=== PATIENT | male | born 1955 | race Caucasian/White ===

== ENCOUNTER 2018-06-12 07:31 | Day surgery (SDC) | payer OTHER ==
[~2018-06-12] VITALS: Ht 185.4 cm; Wt 108.9 kg
[~2018-06-12 07:31] MED LIST: ATOR40TA PO; BASAGLAR K100 UNIT/1 SC; Humalog100 UNIT/3; Prinivil10 MG PO; SILD25T PO
== END 2018-06-12 22:39 | disposition home or self-care (01) ==
LOC: ORSCMMR 07:31 → ORD 08:30 → ORSCMMR 22:39
PROVIDERS: Internal Medicine Gastroenterology
PROC: 0DBM8ZX Excision of Descending Colon, Via Natural or Artificial Opening Endoscopic, Diagnostic (ICD-10-PCS; principal; 2018-06-12 08:30)
DX: Z12.11 Encounter for screening for malignant neoplasm of colon (principal); D12.4 Benign neoplasm of descending colon; K57.30 Diverticulosis of large intestine without perforation or abscess without bleeding; Z86.010 Personal history of colon polyps; E11.9 Type 2 diabetes mellitus without complications; I10 Essential (primary) hypertension; E78.00 Pure hypercholesterolemia, unspecified; Z87.891 Personal history of nicotine dependence; Z79.4 Long term (current) use of insulin; Z79.899 Other long term (current) drug therapy
CPT/HCPCS: 82947; 88305; J7120

== ENCOUNTER 2018-11-17 15:36 | Observation (INO) | payer MEDICARE ==
[~2018-11-17] VITALS: Ht 182.9 cm; Wt 108.6 kg
[2018-11-17 16:07] LABS: BASOPHILS ABSOLUTE AUTO 0.06 K/mm3 (0.00-0.23); BASOPHILS PERCENT AUTO 0 % (0-2); EOSINOPHILS ABSOLUTE AUTO 0.03 K/mm3 (0.00-0.68); EOSINOPHILS PERCENT AUTO 0 % (0-6); Hematocrit 44.2 % (37.0-53.0); Hemoglobin 14.4 g/dL (13.5-17.5); IMMATURE GRAN ABSOLUTE AUTO 0.06 K/mm3 (0.00-0.10); IMMATURE GRAN PERCENT AUTO 0 % (0-1); LYMPHOCYTES ABSOLUTE AUTO 2.17 K/mm3 (0.84-5.20); LYMPHOCYTES PERCENT AUTO 16 % (21-46); MONOCYTES PERCENT AUTO 9 % (4-13); Mean Corpuscular HGB 31.4 pg (26.0-34.0); Mean Corpuscular HGB Conc 32.6 g/dL (31.5-36.5); Mean Corpuscular Volume 97 fL (80-100); Mean Platelet Volume 9.6 fL (9.1-12.4); NEUTROPHILS ABSOLUTE AUTO 9.87 K/mm3 (1.96-9.15); NEUTROPHILS PERCENT AUTO 74 % (41-73); Platelet Count 339 K/mm3 (150-400); RDW Coefficient Variation 12.1 % (11.7-14.2); Red Blood Cell Count 4.58 M/mm3 (4.30-5.90); White Blood Cell Count 13.39 K/mm3 (4.00-11.30)
[2018-11-17 16:27] LABS: Alanine Aminotransfer (ALT/SGP 33 U/L (12-78); Albumin, Blood 3.8 g/dL (3.4-5.0); Alk Phos 98 U/L (50-136); Anion Gap 10 mmol/L (6-16); Aspartate Aminotrans (AST/SGOT 35 U/L (12-37); Bilirubin, Total 0.3 mg/dL (0.1-1.0); Blood Urea Nitrogen 14 mg/dL (8-24); Bun/Creatinine Ratio 15.4 (12.0-20.0); CO2, Blood 25 mmol/L (21-32); Calcium, Blood 8.2 mg/dL (8.5-10.1); Chloride, Blood 105 mmol/L (98-108); Creatinine, Blood 0.91 mg/dL (0.60-1.20); Glomerular Filtration Rate >60 (60-); Glucose, Blood 136 mg/dL (70-99); Potassium, Blood 3.9 mmol/L (3.5-5.5); Sodium, Blood 140 mmol/L (136-145); Total Protein, Blood 7.8 g/dL (6.4-8.2)
[2018-11-17 16:31] LABS: International Normalized Ratio 0.93; Prothrombin Time Results 9.8 Sec (9.7-11.5)
[2018-11-18 05:10] LABS: BASOPHILS ABSOLUTE AUTO 0.05 K/mm3 (0.00-0.23); BASOPHILS PERCENT AUTO 1 % (0-2); EOSINOPHILS ABSOLUTE AUTO 0.02 K/mm3 (0.00-0.68); EOSINOPHILS PERCENT AUTO 0 % (0-6); Hematocrit 42.3 % (37.0-53.0); Hemoglobin 14.2 g/dL (13.5-17.5); IMMATURE GRAN ABSOLUTE AUTO 0.02 K/mm3 (0.00-0.10); IMMATURE GRAN PERCENT AUTO 0 % (0-1); LYMPHOCYTES ABSOLUTE AUTO 1.94 K/mm3 (0.84-5.20); LYMPHOCYTES PERCENT AUTO 24 % (21-46); MONOCYTES ABSOLUTE AUTO 0.91 K/mm3 (0.16-1.47); MONOCYTES PERCENT AUTO 11 % (4-13); Mean Corpuscular HGB 31.3 pg (26.0-34.0); Mean Corpuscular HGB Conc 33.6 g/dL (31.5-36.5); Mean Platelet Volume 9.8 fL (9.1-12.4); NEUTROPHILS ABSOLUTE AUTO 5.32 K/mm3 (1.96-9.15); NEUTROPHILS PERCENT AUTO 65 % (41-73); Platelet Count 318 K/mm3 (150-400); RDW Coefficient Variation 12.3 % (11.7-14.2); RDW Standard Deviation 42.4 fL (35.1-46.3); Red Blood Cell Count 4.53 M/mm3 (4.30-5.90); White Blood Cell Count 8.26 K/mm3 (4.00-11.30)
[2018-11-18 05:37] LABS: Mean Corpuscular Volume 93 fL (80-100)
--- NOTE | 2018-11-18 05:48 | NUR ---
SHIFT SUMMARY PT SLEPT SOUNDLY SINCE 2099. FALLS ASLEEP QUICK BUT WAKES WHEN YOU SAY HIS NAME. AOX4. ANSWERS ALL QUESTIONS APPROPRIATELY, FOLLOWS DIRECTIONS, IS SLOW TO RESPOND BUT SPEECH IS CLEAR. DENIES SOB, N/V OR PAIN. CHEM BG @HS 110. PER DAM ATTENDANT MONITOR PT IS NSR W/HR 91. CIWA SCORE RANGING 0-2 FOR A MILD HEADACHE PT REPORTED LAST NIGHT @ ADMISSION, NO FURTHER REPORTS OF HEADACHES. CALL LIGHT IS IN REACH & I WILL CONT TO MONITOR UNTIL DAY SHIFT RN ASSUMES CARE.
[2018-11-18 05:50] LABS: Anion Gap 7 mmol/L (6-16); Blood Urea Nitrogen 10 mg/dL (8-24); Bun/Creatinine Ratio 11.9 (12.0-20.0); CHOL/HDL RATIO 2.9; CO2, Blood 28 mmol/L (21-32); Calcium, Blood 8.6 mg/dL (8.5-10.1); Chloride, Blood 106 mmol/L (98-108); Cholesterol 186 mg/dL (50-200); Creatinine, Blood 0.84 mg/dL (0.60-1.20); Glomerular Filtration Rate >60 (60-); Glucose, Blood 100 mg/dL (70-99); HDL Cholesterol 64 mg/dL (>39); LDL/HDL RATIO 1.5; Low Density Lipoprotein Chol 98 mg/dL (0-110); Sodium, Blood 141 mmol/L (136-145); Triglycerides 118 mg/dL (30-160); Very Low Density Lipoprot Chol 23 mg/dL (6-32)
[2018-11-18 08:25] LABS: U Amphetamine Screen Not Detected; U Barbituate Screen Not Detected; U Benzodiazapine Screen Not Detected; U Buprenorphine Screen Not Detected; U Cannabinoids Screen DETECTED; U Cocaine Screen Not Detected; U Methadone Screen Not Detected; U Methamphetamine Screen Not Detected; U Opiates Screen Not Detected; U Oxycodone Screen Not Detected; U Phencyclidine Screen Not Detected; U Propoxyphene Screen Not Detected
--- NOTE | 2018-11-18 09:19 | NUR ---
PATIENT WAS OFFERED A SHOWER BUT WANTS TO WAIT HE IS POSSIBLY BEING DISCHARGED TODAY AND IF HE IS GOING HOME HE WANYS TO GO HOME AND TAKE ONE.
[2018-11-18] MEDS ORDERED: ASPI81CH PO (14:41)
[2018-11-18] MEDS ORDERED: LEVE500 PO (14:42)
--- NOTE | 2018-11-18 14:56 | NUR ---
DISCHARGE SUMMARY PT EXREMELY EAGER TO BE DISCHARGED. NURSE EDUCATED PT ON MEDICATIONS, TO PICK THEM UP FROM PHARMACY AND TO FOLLOW UP REGARDING OUTPATIENT MRI AND EEG. PT STATES THAT HE ALREADY HAS MRI SCHEDULED FOR NEXT WEEK. PT PULLED OWN IV AND DISCONNECTED HIMSELF FROM HIS IV KEPPRA EARLIER IN SHIFT. PT AMBULATED OUT WITH STEADY GAIT AND RN ESCORT. PT TRIED TO REFUSE ESCORT OUT.
== END 2018-11-18 14:49 | disposition home or self-care (01) ==
LOC: ER 15:36 → MEDS 15:37 → ENPENDDIS 11-18 14:01 → MEDS 11-18 14:49
PROVIDERS: Emergency Medicine; ADMIT Family Medicine
DX: R56.9 Unspecified convulsions (principal); I10 Essential (primary) hypertension; E10.649 Type 1 diabetes mellitus with hypoglycemia without coma; G45.9 Transient cerebral ischemic attack, unspecified; D72.829 Elevated white blood cell count, unspecified; E66.9 Obesity, unspecified; F12.90 Cannabis use, unspecified, uncomplicated; Z91.14 Patient's other noncompliance with medication regimen; Z79.899 Other long term (current) drug therapy; Z87.891 Personal history of nicotine dependence; Z68.29 Body mass index [BMI] 29.0-29.9, adult
CPT/HCPCS: 36415; 70450; 80048; 80053; 80061; 82947; 84146; 84443; 85025; 85610; 93005; 93010; 93306; 93880; 96361; 96365; 96366; 96372; 99285-25; G0378; G0480; J1650; J1815; J1953; J7050

== ENCOUNTER 2022-09-07 08:33 | Day surgery (SDC) | payer MEDICARE ==
[~2022-09-07 08:33] MED LIST changes: +ASPI81CH PO; +LEVE500 PO
== END 2022-09-07 10:53 | disposition home or self-care (01) ==
DX: H25.12 Age-related nuclear cataract, left eye (principal); H21.81 Floppy iris syndrome; I10 Essential (primary) hypertension; Z87.891 Personal history of nicotine dependence; E11.9 Type 2 diabetes mellitus without complications; Z79.899 Other long term (current) drug therapy

== ENCOUNTER 2025-01-08 07:45 | Day surgery (SDC) | payer MEDICARE ==
[~2025-01-08] VITALS: Ht 185.4 cm; Wt 97.2 kg
[~2025-01-08 07:45] MED LIST changes: +Lactated Ringer's 1,000 ML IV SCH
[2025-01-08 08:12] VITALS: BP 129/82
--- NOTE | 2025-01-08 08:28 | NUR ---
Ambulatory in Day Surgery WITH [facility]. History, Chart, Medications and Allergies reviewed before start of procedure. Pre-Op teaching done. Pt verbalizes understanding. Patient States Post-Procedure ride home has been arranged WITH [employer] [facility]. GLASSES REMAIN IN PLACE DURING PRE OP.
[2025-01-08] MEDS ORDERED: propofoL 40 ML IV ONE (08:54)
[2025-01-08] MEDS ORDERED: propofoL 20 ML IV ONE (09:22)
--- NOTE | 2025-01-08 09:23 | NUR ---
01/08/25 0923 Alberto Yang MONITOR INTACT WITH CONTINUOUS PULSE OXIMETRY, CONTINUOUS END TITAL CO2, 3-LEAD EKG AND INTERMITTENT BLOOD PRESSURE. ANESTHESIA PER DR. ANNE
[2025-01-08 09:45] VITALS: BP 115/80
--- NOTE | 2025-01-08 09:45 | NUR ---
DR AUGUSTINE AT BEDSIDE REVIEWING RESULTS OF PROCEDURE.
[2025-01-08 09:56] VITALS: BP 120/87
--- NOTE | 2025-01-08 10:08 | NUR ---
1000- VSS. Patient up to dress with steady gate. Discharge instructions reviewed with patient. Patient verbalizes understanding. Copy given to patient to take home. Tolerating PO water. No c/o verbalized. Patient States Post-Procedure ride home has been arranged with "", [place].
== END 2025-01-08 10:08 | disposition home or self-care (01) ==
LOC: ORSCMMR 07:45 → ORD 09:00 → ORSCMMR 10:08
PROVIDERS: Internal Medicine Gastroenterology
PROC: 0DBK8ZX Excision of Ascending Colon, Via Natural or Artificial Opening Endoscopic, Diagnostic (ICD-10-PCS; principal; 2025-01-08 09:00)
PROC: 0DBN8ZX Excision of Sigmoid Colon, Via Natural or Artificial Opening Endoscopic, Diagnostic (ICD-10-PCS; principal; 2025-01-08 09:00)
PROC: 0DBH8ZX Excision of Cecum, Via Natural or Artificial Opening Endoscopic, Diagnostic (ICD-10-PCS; principal; 2025-01-08 09:00)
DX: Z12.11 Encounter for screening for malignant neoplasm of colon (principal); K63.5 Polyp of colon; D12.0 Benign neoplasm of cecum; D12.2 Benign neoplasm of ascending colon; D12.5 Benign neoplasm of sigmoid colon; Z86.0101 Personal history of adenomatous and serrated colon polyps; E11.9 Type 2 diabetes mellitus without complications; I10 Essential (primary) hypertension; E78.00 Pure hypercholesterolemia, unspecified; Z79.4 Long term (current) use of insulin; Z79.899 Other long term (current) drug therapy; Z87.891 Personal history of nicotine dependence
CPT/HCPCS: 82947; 88305; J2704; J7120